=== PATIENT | female | born 1990 | race Asian ===

== ENCOUNTER 2018-02-03 07:49 | Inpatient (IN) | payer SELFPAY ==
[~2018-02-03] VITALS: Ht 160 cm; Wt 68.5 kg
[2018-02-04] MEDS ORDERED: PREN-546 PO (00:28)
[2018-02-04 00:37] VITALS: BP 102/65
[2018-02-04] MEDS ORDERED: OXYTOCIN 20 UNITS in LACTATED RINGERS 1,000 ML IV SCH (01:15)
[2018-02-04] MEDS ORDERED: OXYTOCIN 10 UNITS/ML VIAL IM PRN ×2 (01:15→07:05)
[2018-02-04 01:49] LABS: BASOPHILS % (AUTO) 0.2 % (0.0-2.0); EOSINOPHILS # (AUTO) 0.1 K/uL (0-0.4); EOSINOPHILS % (AUTO) 1.3 % (0.0-4.0); HEMATOCRIT 37.1 % (36-48); HEMOGLOBIN 12.6 g/dL (12.0-16.0); LYMPHOCYTES # (AUTO) 1.5 K/uL (2.5-16.5); LYMPHOCYTES % (AUTO) 18.6 % (20.5-51.1); MEAN CORPUSCULAR HEMOGLOBIN 32 pg (27-31); MEAN CORPUSCULAR HGB CONC 34 g/dL (33-37); MEAN CORPUSCULAR VOLUME 93.2 fL (80-94); MONOCYTES # (AUTO) 0.5 K/uL (0.8-1.0); NEUTROPHILS # (AUTO) 5.7 K/uL (1.8-7.7); NEUTROPHILS % (AUTO) 72.9 % (42.2-75.2); PLATELET COUNT (AUTO) 220 K/uL (140-450); RED BLOOD CELL COUNT(AUTO) 3.98 MIL/uL (4.20-5.40); RED CELL DISTRIBUTION WIDTH 13.7 % (11.6-13.7); WHITE BLOOD COUNT (AUTO) 7.8 K/uL (4.8-10.8)
[2018-02-04] MEDS ORDERED: MISOPROSTOL 25 MCG TAB ONE (02:08)
[2018-02-04] MEDS: LACTATED RINGERS 1,000 ML IV SCH ×3 (02:15→08:42)
[2018-02-04 02:55] LABS: APPEARANCE,URINE CLEAR (CLEAR); BILIRUBIN,URINE NEGATIVE (NEGATIVE); BLOOD, URINE NEGATIVE (NEGATIVE); COLOR,URINE YELLOW (YELLOW); LEUKOCYTE ESTERASE ,URINE NEGATIVE (NEGATIVE); NITRITE, URINE NEGATIVE (NEGATIVE); PH,URINE 6.5 (5.0-9.0); UGLUCOSE NEGATIVE (NEGATIVE)
[2018-02-04] MEDS ORDERED: MISOPROSTOL 25 MCG TAB VG SCH (04:00)
[2018-02-04] MEDS ORDERED: OXYTOCIN 20 UNITS/LR PREMIX 1,000 ML IV ONE (06:10)
[2018-02-04] MEDS ORDERED: HYDROcodone/APAP 5/325 MG 1 TAB TAB PO PRN (07:05)
[2018-02-04] MEDS ORDERED: METHYLERGONOVINE 0.2 MG/ML AMP IM PRN (07:05)
[2018-02-04] MEDS ORDERED: IBUPROFEN 800 MG TAB PO PRN (07:05)
[2018-02-04] MEDS ORDERED: TEMAZEPAM 15 MG CAP PO PRN (07:05)
[2018-02-04] MEDS ORDERED: BENZOCAINE/MENTHOL 20%-0.5% 60 GM CAN TP PRN (07:05)
[2018-02-04] MEDS ORDERED: MEASLES, MUMPS, AND RUBELLA 1 VIAL SQVAC PRN (07:05)
[2018-02-04] MEDS ORDERED: oxyCODONE/APAP 5/325 MG 1 TAB TAB PO PRN (07:05)
[2018-02-04] MEDS ORDERED: BUPIVACAINE 0.125%/NS PREMIX 250 ML ONE (08:29)
[2018-02-04] MEDS ORDERED: BUPIVACAINE 0.125%/NS PREMIX 250 ML EPI SCH (08:55)
--- NOTE | 2018-02-04 10:16 | NUR ---
PATIENT HAS BEEN SCREENED AND CATEGORIZED LOW NUTRITION RISK. PATIENT WILL BE SEEN WITHIN 7 DAYS OF ADMISSION. 02/10/[address]
[2018-02-04] MEDS ORDERED: OXYTOCIN 10 UNITS/ML VIAL ONE (13:00)
[2018-02-04 13:56] LABS: RAPID PLASMA REAGIN NON-REACTIVE (Non Reactiv)
[2018-02-04] MEDS ORDERED: DOCUSATE SOD/SENNA 50/8.6 MG 1 TAB PO SCH (21:00)
[2018-02-04] MEDS ORDERED: BETHANECHOL 25 MG TAB PO PRN (21:05)
[2018-02-05 06:41] LABS: HEMOGLOBIN 12.1 g/dL (12.0-16.0)
[2018-02-06] MEDS ORDERED: IBUP-2217 PO (12:57)
== END 2018-02-06 16:26 | disposition home or self-care (01) | DRG 775 ==
LOC: MLD 02-04 00:15 → MFCC 02-04 16:35
PROVIDERS: ADMIT Obstetrics & Gynecology; ATTEND Obstetrics & Gynecology
PROC: 10D07Z6 Extraction of Products of Conception, Vacuum, Via Natural or Artificial Opening (ICD-10-PCS; principal; 2018-02-04)
PROC: 0KQM0ZZ Repair Perineum Muscle, Open Approach (ICD-10-PCS; 2018-02-04)
PROC: 10907ZC Drainage of Amniotic Fluid, Therapeutic from Products of Conception, Via Natural or Artificial Opening (ICD-10-PCS; 2018-02-04)
PROC: 3E033VJ Introduction of Other Hormone into Peripheral Vein, Percutaneous Approach (ICD-10-PCS; 2018-02-04)
PROC: 3E0P7VZ Introduction of Hormone into Female Reproductive, Via Natural or Artificial Opening (ICD-10-PCS; 2018-02-04)
PROC: 00HU33Z Insertion of Infusion Device into Spinal Canal, Percutaneous Approach (ICD-10-PCS; 2018-02-04)
PROC: 3E0R3BZ Introduction of Anesthetic Agent into Spinal Canal, Percutaneous Approach (ICD-10-PCS; 2018-02-04)
DX: O48.0 Post-term pregnancy (principal); O70.1 Second degree perineal laceration during delivery; Z37.0 Single live birth; Z3A.40 40 weeks gestation of pregnancy; Z28.21 Immunization not carried out because of patient refusal
CPT/HCPCS: 36415; 51702; 59200; 81003; 85018; 85025; 86592; 86886; 86900; 86901; C1758; J2590; J3490; J7120